=== PATIENT | female | born 1990 | race Two or more races ===

== ENCOUNTER 2021-02-19 15:02 | Observation (INO) | payer SELFPAY ==
[2021-02-19] MEDS ORDERED: IV RINGERS,LACTATED 1000ML 1,000 ML IV SCH (16:15)
[2021-02-19 16:38] LABS: BILIRUBIN,URINE NEGATIVE (NEG); CLARITY,URINE CLOUDY; COLOR,URINE YELLOW; NITRITE,URINE NEGATIVE (NEG); PROTEIN,URINE NEGATIVE (NEG-TRACE)
[2021-02-19 16:45] LABS: BACTERIA,URINE MANY /HPF (0-FEW); RBC,URINE 0 /HPF (0-2); WBC,URINE 20-40 /HPF (0-4)
[2021-02-27] MEDS ORDERED: IBUP-1060 PO (08:21)
[2021-02-27] MEDS ORDERED: DOCU-109 PO (08:21)
== END 2021-02-19 17:15 | disposition home or self-care (01) ==
LOC: 3 SO LND 15:02
PROVIDERS: ADMIT Obstetrics & Gynecology; ATTEND Obstetrics & Gynecology
DX: O62.9 Abnormality of forces of labor, unspecified (principal); Z3A.38 38 weeks gestation of pregnancy
CPT/HCPCS: 81001; 87086; G0378; G0379; 59025